=== PATIENT | male | born 1950 | race Caucasian/White ===

== ENCOUNTER → 2017-02-20 | Day surgery (SDC) | payer MEDICARE, BC ==
[~2017-02-20] MED LIST: Lactated Ringers 1,000 ML IV SCH; Propofol 200 MG/20 ML SDV IV ONE
[2017-02-20 11:02] VITALS: BP 136/85
--- NOTE | 2017-02-20 12:06 | OR ---
DATE OF OPERATION: 02/20/2017 PREOPERATIVE DIAGNOSIS: 1. HISTORY OF PATRICIO ESOPHAGUS. 2. SCREENING COLONOSCOPY. POSTOPERATIVE DIAGNOSIS: 1. HISTORY OF PATRICIO ESOPHAGUS. 2. SCREENING COLONOSCOPY. SURGEON: Dayton Cintron MD PROCEDURE: 1. ESOPHAGOGASTRODUODENOSCOPY WITH BIOPSIES X3, KARLENE. 2. FULL-LENGTH COLONOSCOPY. ANESTHESIA: FAGOT HEATER due to chronic GERD. COMPLICATIONS: None. SPECIMEN: 1. Antral KARLENE. 2. Distal esophageal biopsy x3. FINDINGS: 1. Full-length EGD. 2. Small hiatal hernia with nonobstructing Schatzki ring. 3. Short segment Patricio esophagus. 4. Normal full-length colonoscopy. RECOMMENDATIONS: 1. Routine Patricio's surveillance every three years. 2. Routine colonoscopy every 10 years. INDICATIONS: The patient has a documented history of Patricio esophagus. He needs routine surveillance and he is due for screening colonoscopy. DESCRIPTION OF PROCEDURE: The patient was prepped and draped, placed in the left lateral decubitus position. A lubricated Olympus gastroscope was inserted over a bit, advanced to the cricopharyngeus area, and easily intubated into the esophagus. I advanced without complication. The entire esophageal line appeared benign until its most distal portion. There is presence of a small hiatal hernia and a nonobstructing Schatzki ring around 37 cm. There is one segment of short segment Patricio's changes and three biopsies of that were taken right up into the advancing edge. No signs of any ulceration or dysplastic tissue, thickening, etc. Scope was intubated into the stomach through the pylorus and into the third portion of the duodenum. Second and third portion of the duodenum and the duodenal bulb appeared completely benign. The scope was brought back into the stomach and retroflexed. The upper fundus and cardia were completely unremarkable other than the hernia itself. Upon straightening thorough evaluation, the rest of the fundus and antrum showed no signs of any peptic ulcer disease. There were no vascular abnormalities. There was one small benign-appearing adenomatous polyp of the mid fundus which was removed in its entirety with two cold forceps biopsies. There were no other gross abnormalities. CLOtest was obtained. Air was suctioned and scope was removed without complication. A lubricated Olympus colonoscope was then inserted and easily advanced to the cecum. Direct visualization of the ileocecal valve and appendiceal orifice was accomplished. The bowel prep was excellent. Upon withdrawal of the scope throughout the entire length of the colon, there were no signs of any polyps, mass, ulceration, or bleeding sites. No vascular abnormalities or signs of colitis. There were no significant diverticula. The rectal vault was unremarkable. Retroflexion of scope in the rectum showed no anal lesions. Air was then suctioned. The scope was removed without complication. ARLET/RIANA /[id number]
--- NOTE | 2017-02-20 12:06 | OR ---
DATE OF OPERATION: 02/20/2017 ADDENDUM/CONTINUATIONS: FINDINGS: 1. Benign adenomatous polyp, fundus. ARLET/RIANA /[id number]
== END ==
LOC: CC.SDS 09:17
PROVIDERS: ATTEND Family Medicine
DX: Z12.11 Encounter for screening for malignant neoplasm of colon (principal); D13.1 Benign neoplasm of stomach; K44.9 Diaphragmatic hernia without obstruction or gangrene; K22.2 Esophageal obstruction; I10 Essential (primary) hypertension; K21.9 Gastro-esophageal reflux disease without esophagitis; Z79.82 Long term (current) use of aspirin; Z79.899 Other long term (current) drug therapy
CPT/HCPCS: 43239; 87081; G0121; J2704; J7120; 00810; 88305; 88312

== ENCOUNTER → 2023-05-29 | Day surgery (SDC) | payer MEDICARE, BC ==
[~2023-05-29] MED LIST changes: +Ketamine 200 MG/20 ML MDV ONE; -Propofol 200 MG/20 ML SDV IV ONE; +Propofol 200 MG/20 ML SDV ONE; +fentaNYL 50 MCG/ML SDV ONE
[2023-05-29 10:47] VITALS: BP 135/69; PULSE 71
== END ==
LOC: CC.SDS 08:48
PROVIDERS: ATTEND Family Medicine
DX: D12.3 Benign neoplasm of transverse colon (principal); K57.30 Diverticulosis of large intestine without perforation or abscess without bleeding; K64.9 Unspecified hemorrhoids; N40.0 Benign prostatic hyperplasia without lower urinary tract symptoms; K21.9 Gastro-esophageal reflux disease without esophagitis; E78.5 Hyperlipidemia, unspecified; I10 Essential (primary) hypertension; G62.9 Polyneuropathy, unspecified; Z79.899 Other long term (current) drug therapy
CPT/HCPCS: 00811; 45380; 99100; J2704; J3010; J3490; J7120

== ENCOUNTER 2025-02-15 11:58 | Emergency (ER) | payer MEDICARE, BC ==
[2025-02-15 12:18] VITALS: PULSE 77
[2025-02-15 12:20] LABS: BASOPHILS ABSOLUTE AUTO 0.05 10^3/uL (0.00-0.50); BASOPHILS PERCENT AUTO 0.4 % (0-1); EOSINOPHILS ABSOLUTE AUTO 0.15 10^3/uL (0.00-1.50); EOSINOPHILS PERCENT AUTO 1.3 % (0-6); IMMATURE GRAN ABSOLUTE AUTO 0.04 10^3/uL (0.00-0.49); IMMATURE GRAN PERCENT AUTO 0.4 % (0.0-4.9); LYMPHOCYTES ABSOLUTE AUTO 3.09 10^3/uL (0.60-5.00); LYMPHOCYTES PERCENT AUTO 27.5 % (24-44); MONOCYTES ABSOLUTE AUTO 0.96 10^3/uL (0.00-1.50); MONOCYTES PERCENT AUTO 8.5 % (0-10); NEUTROPHILS ABSOLUTE AUTO 6.96 x10^3/uL (1.80-8.00); NEUTROPHILS PERCENT AUTO 61.9 % (41-71); PLATELET COUNT,PLT 280 10^3/uL (150-400); RED BLOOD CELL COUNT 3.96 x10^6/uL (4.50-6.00); WHITE BLOOD CELL COUNT,WBC 11.3 10^3/uL (4.0-11.0)
[2025-02-15 12:36] LABS: ALANINE AMINOTRANSFERASE,ALT 41.0 U/L (12-78); ASPARTATE AMNIOTRANSFERASE,AST 25.0 U/L (15-37); BILIRUBIN TOTAL 0.6 mg/dL (0.0-1.0); BLOOD UREA NITROGEN,BUN 17.0 mg/dL (7-18); CARBON DIOXIDE,CO2 30.0 mmol/L (21-32); CHLORIDE,CL 93.0 mEq/L (98-106); CREATININE 1.7 mg/dL (0.7-1.3); EST CRCL DRUG DOSING (CG) 40.59 mL/min; ESTIMATED GFR 42.0 mL/min (>=60); GLUCOSE RANDOM 154.0 mg/dL (75-99); POTASSIUM,K 3.3 mEq/L (3.5-5.0); PROTEIN TOTAL,TP 7.1 g/dL (6.4-8.2); SODIUM,NA 133.0 mEq/L (136-145)
[2025-02-15 14:44] VITALS: BP 121/57
== END 2025-02-15 13:50 | disposition home or self-care (01) ==
LOC: CC.ED 11:58
DX: R55 Syncope and collapse (principal); E78.00 Pure hypercholesterolemia, unspecified; I10 Essential (primary) hypertension; Z79.899 Other long term (current) drug therapy; Z87.891 Personal history of nicotine dependence
CPT/HCPCS: 36415; 70450; 71045; 80053; 84484; 85025; 86140; 93005; 93010; 93242; 96360; 99284; 99285-25; A6213; J7030